=== PATIENT | female | born 1990 | race Hispanic/Latino ===

== ENCOUNTER 2025-06-12 18:00 | Inpatient (IN) | payer MEDICAID, OTHER ==
[2025-06-12] MEDS ORDERED: Methylergonovine 0.2 MG/ML VIAL IM PRN (18:56)
[2025-06-12] MEDS ORDERED: hydrALAZINE 20 MG/ML VIAL SLOW IVP PRN (18:56)
[2025-06-12] MEDS ORDERED: Lidocaine 1% (PF) 30 ML VIAL SC PRN (18:56)
[2025-06-12] MEDS ORDERED: HYDROcodone/Acetaminophen 5/325 mg Tablet PO PRN (18:56)
[2025-06-12] MEDS ORDERED: Acetaminophen 500 MG TAB PO PRN (18:56)
[2025-06-12] MEDS ORDERED: Oxytocin 30 units/NS 500 ML 500 ML IV SCH ×2 (18:56)
[2025-06-12] MEDS ORDERED: Ibuprofen 800 MG TAB PO PRN (18:56)
[2025-06-12] MEDS ORDERED: Tranexamic Acid 1,000 MG/10 ML VIAL IVP PRN (18:56)
[2025-06-12] MEDS ORDERED: Ondansetron PF 4 MG/2 ML Vial IVP PRN (18:56)
[2025-06-12] MEDS ORDERED: Carboprost 250 MCG/ML AMP IM PRN (18:56)
[2025-06-12] MEDS ORDERED: Diphenoxylate HCl/Atropine Tablet PO PRN (18:56)
[2025-06-12 18:57] VITALS: BMI 38.4
[2025-06-12 19:04] LABS: Hematocrit 32.2 % (34.9-44.5); Hemoglobin 10.7 g/dL (12.0-15.5); Mean Corpuscular Hemoglobin 28.3 pg (27.0-33.0); Mean Corpuscular Volume 85.2 fL (81.6-98.3); Platelet Count 285 10x3/uL (150-450); Red Blood Cell (RBC) Count 3.78 10x6/uL (3.90-5.03); White Blood Cell (WBC) Count 10.58 10x3/uL (3.5-10.5)
[2025-06-12 19:16] LABS: ALT (SGPT) 16 U/L (Less than 34); AST (SGOT) 16 U/L (11-34); Albumin 3.4 g/dL (3.1-4.5); Alkaline Phosphatase 125 U/L (40-110); Anion Gap 13 mmol/L (10-20); BUN (Urea Nitrogen) 7 mg/dL (7.0-18.7); Bilirubin, Total 0.3 mg/dL (0.3-1.2); Calc. Creatinine Clearance 272 mL/min (70-130); Calcium 8.6 mg/dL (7.8-10.44); Carbon Dioxide 19 mmol/L (22-29); Chloride 110 mmol/L (98-107); Globulin 3.0 g/dL (2.4-3.5); Glucose 121 mg/dL (70-105); Potassium 3.4 mmol/L (3.5-5.1); Sodium 139 mmol/L (136-145)
[2025-06-12 19:35] LABS: Hep B Surf Ag - L&D Non-Reactive S/CO (NonReactive)
[2025-06-12 19:36] LABS: Syphilis Antibody Index 0.09 S/CO (<1.00 Non-Reactive)
[2025-06-13] MEDS ORDERED: PROPOFOL 200 MG/20 ML VIAL ONE (12:00)
[2025-06-13] MEDS ORDERED: Bicitra 30 ML UDCUP PO PRN (14:02)
[2025-06-13] MEDS ORDERED: Famotidine/PF 20 mg/2ml Vial SLOW IVP PRN (14:02)
[2025-06-13 14:22] LABS: Analyzer IN Cardio CS NICU
[2025-06-13] MEDS ORDERED: Ondansetron PF 4 MG/2 ML Vial IVP PRN ×2 (14:30→15:05)
[2025-06-13] MEDS ORDERED: Meperidine HCl/PF 25 MG (1 mL) VIAL SLOW IVP PRN (14:30)
[2025-06-13] MEDS ORDERED: diphenhydrAMINE 50 MG/ML VIAL IM PRN (15:05)
[2025-06-13] MEDS ORDERED: diphenhydrAMINE 50 MG/ML VIAL IVP PRN (15:05)
[2025-06-13] MEDS ORDERED: diphenhydrAMINE 25 MG CAP PO PRN (15:05)
[2025-06-13] MEDS ORDERED: Communication Order-Pharmacy FS PRN (15:15)
[2025-06-13] MEDS ORDERED: HYDROmorphone HCl/0.9% NaCl/PF 30 ML IV SCH ×2 (15:15→15:24)
[2025-06-13] MEDS ORDERED: HYDROMORPHONE IV PRN (15:39)
[2025-06-13] MEDS ORDERED: SODIUM CHLORIDE 0.9% IV PRN (15:39)
[2025-06-13] MEDS: HYDROMORPHONE IVPB PRN (16:41)
[2025-06-13] MEDS: SODIUM CHLORIDE 0.9% IVPB PRN (16:41)
[2025-06-13] MEDS ORDERED: hydrALAZINE 20 MG/ML VIAL SLOW IVP PRN (18:19)
[2025-06-13] MEDS ORDERED: Bisacodyl 10 MG SUPP PR PRN (18:19)
[2025-06-13] MEDS ORDERED: Simethicone Chewable 80 MG TAB PO PRN (18:19)
[2025-06-13] MEDS: CEFAZOLIN 2 GM VIAL ONE (18:52)
[2025-06-13] MEDS: Azithromycin 500 MG VIAL ONE (18:52)
[2025-06-13] MEDS: NIFEdipine XL 30 MG ER.TAB PO SCH (18:52)
[2025-06-13] MEDS: Oxytocin 30 units/NS 500 ML 500 ML ONE (18:53)
[2025-06-13] MEDS: Azithromycin 500 MG in Sodium Chloride 0.9% 250 ML 250 ML IVPB SCH (18:53)
[2025-06-13] MEDS: Ketorolac Tromethamine 30 MG (1 mL) VIAL ONE (18:53)
[2025-06-13] MEDS: Ondansetron PF 4 MG/2 ML Vial IVP PRN (20:22)
[2025-06-13] MEDS: Ketorolac Tromethamine 30 MG (1 mL) VIAL IVP SCH (20:32)
[2025-06-13] MEDS: Ferrous Sulfate 325 MG TAB PO SCH (20:38)
[2025-06-14 03:51] LABS: Hematocrit 27.4 % (34.9-44.5); Hemoglobin 9.2 g/dL (12.0-15.5); Mean Corpuscular Hemoglobin 29.0 pg (27.0-33.0); Mean Corpuscular Volume 86.4 fL (81.6-98.3); Platelet Count 239 10x3/uL (150-450); Red Blood Cell (RBC) Count 3.17 10x6/uL (3.90-5.03); White Blood Cell (WBC) Count 14.57 10x3/uL (3.5-10.5)
[2025-06-14] MEDS: Boostrix 0.5 ML (Tdap) VIAL (>/=7 yrs of age) IM ONE (07:29)
[2025-06-14] MEDS ORDERED: Meperidine HCl/PF 25 MG (1 mL) VIAL IM PRN (15:00)
[2025-06-14] MEDS ORDERED: HYDROcodone/Acetaminophen 5/325 mg Tablet PO PRN (15:00)
[2025-06-14] MEDS: HYDROcodone/Acetaminophen 5/325 mg Tablet PO PRN (15:02)
[2025-06-14] MEDS: Ibuprofen 800 MG TAB PO SCH (21:22)
[2025-06-15] MEDS: Cephalexin 500 MG CAP PO SCH (21:38)
[2025-06-15] MEDS: metroNIDAZOLE 500 MG TAB PO SCH (21:38)
[2025-06-16 08:02] VITALS: BP 112/63; TEMP 98.4
== END 2025-06-16 12:20 | disposition home or self-care (01) | DRG 787 ==
LOC: CSHLD 18:09 → CSHPP 06-13 17:30
PROVIDERS: ADMIT Family Medicine; ATTEND Family Medicine
PROC: 10D00Z1 Extraction of Products of Conception, Low, Open Approach (ICD-10-PCS; principal; 2025-06-13)
PROC: 10H07YZ Insertion of Other Device into Products of Conception, Via Natural or Artificial Opening (ICD-10-PCS; 2025-06-13)
PROC: 4A1HX4Z Monitoring of Products of Conception, Cardiac Electrical Activity, External Approach (ICD-10-PCS; 2025-06-13)
DX: O24.420 Gestational diabetes mellitus in childbirth, diet controlled (principal); O10.92 Unspecified pre-existing hypertension complicating childbirth; Z3A.37 37 weeks gestation of pregnancy; Z37.0 Single live birth; O69.0XX0 Labor and delivery complicated by prolapse of cord, not applicable or unspecified; O76 Abnormality in fetal heart rate and rhythm complicating labor and delivery
CPT/HCPCS: 36415; 51702; 72170; 80053; 82805; 85027; 86780; 86850; 86900; 86901; 87340; C1889; J0330; J1171; J1885; J2270; J2405; J2704; J3010; J7120